=== PATIENT | male | born 1960 | race Caucasian/White ===

== ENCOUNTER 2021-03-05 08:36 | Day surgery (SDC) | payer BC ==
[~2021-03-05 08:36] MED LIST: Lactated Ringers 1,000 ML IV SCH
[2021-03-05] MEDS ORDERED: Midazolam 1 MG/ML 2 ML SDV ONE (10:26)
[2021-03-05] MEDS ORDERED: Propofol 200 MG/20 ML SDV ONE (10:27)
[2021-03-05] MEDS ORDERED: fentaNYL 100 MCG/2 ML SDV ONE (10:27)
--- NOTE | 2021-03-05 12:17 | OR ---
PREOPERATIVE DIAGNOSIS: History of diarrhea. POSTOPERATIVE DIAGNOSIS: History of diarrhea. PROCEDURE PERFORMED: Colonoscopy with random biopsy. COMPLICATIONS: None. SPECIMENS: Six random biopsies throughout the colon. ESTIMATED BLOOD LOSS: 5 mL. DESCRIPTION OF PROCEDURE: This was done in the endoscopy suite, sedation given per Anesthesia. He was placed in the left lateral position. First, a rectal exam was done and was normal. Scope was introduced into the rectum and slowly advanced to the rectum, sigmoid, descending, transverse, and ascending colon until the cecum was reached. Upon reaching the cecum, the scope was slowly withdrawn. I did random biopsies as I was pulling back in the colon. Otherwise, no abnormalities, polyps, or lesions were noted. FINAL DIAGNOSIS: Normal colonoscopy. Random biopsies pending. BKD: 03/05/2021 11:03:17 MODL: 03/05/2021 11:37:27 /[id number]
== END 2021-03-05 11:38 | disposition home or self-care (01) ==
LOC: VM.SDS 08:36
PROVIDERS: ATTEND Surgery
DX: R19.7 Diarrhea, unspecified (principal); N40.0 Benign prostatic hyperplasia without lower urinary tract symptoms; Z98.890 Other specified postprocedural states; Z79.899 Other long term (current) drug therapy; Z91.040 Latex allergy status
CPT/HCPCS: 00812; 45380; J2250; J2704; J3010; J7120